=== PATIENT | male | born 1975 | race Caucasian/White ===

== ENCOUNTER 2022-03-21 15:28 | Outpatient (CLI) | payer OTHER, SELFPAY ==
--- NOTE | 2022-03-21 11:15 | DI.RAD_ITS ---
Exam(s) XR FOOT RT COMPLETE EXAM: XR FOOT RT COMPLETE CLINICAL HISTORY: follow up. TECHNIQUE: 2D digital imaging was performed. Three views. COMPARISON: No exams were available for comparison FINDINGS: BONES: No acute fracture is present. No bony destructive lesion is seen. JOINTS: No dislocation present. Moderate hallux valgus with some overlap of the 1st toe over the 2nd toe. Minimal degenerative changes 1st MTP joint. Minimal degenerative changes base of 1st metatars al.. SOFT TISSUE: Normal. IMPRESSION: Hallux valgus and mild degenerative changes. DATA REPOSITORY: RADIATION DOSE DELIVERED:
== END 2022-03-21 15:29 | disposition home or self-care (01) ==
LOC: DIORS 15:28
PROVIDERS: Visit Provider Physician Assistant Surgical
DX: M25.571 Pain in right ankle and joints of right foot (principal); M20.11 Hallux valgus (acquired), right foot; M19.071 Primary osteoarthritis, right ankle and foot
CPT/HCPCS: 73630